=== PATIENT | female | born 1975 | race Caucasian/White ===

== ENCOUNTER 2016-11-16 12:29 | Emergency (ER) | payer OTHER ==
[~2016-11-16 12:29] MED LIST: CLEOCIN HCL300 MG PO; HYDROCHLOROTH12.5 M2 PO; KLONOPIN1 M1 PO; LEXAPRO20 M2 PO; OXYCODONE/APAP PO; PERCOCET 5-3251 EACH PO; PERCOCET 5/3251 TAB PO; TESSALON PERLE100 M1 PO; VITAMIN D250000 UNI1 PO; WELLBUTRIN SR150 M1 PO; ZOLOFT100 M1 PO; [UNRECOGNIZED DRUG - REMARK]
[2016-11-16] MEDS ORDERED: BRINTELLIX20 M1 PO (13:08)
[2016-11-16 13:53] LABS: BASO % 0.5 % (0-2); EOSINOPHIL ABSOLUTE COUNT 0.2 tho/cmm (0.0-0.7); HCT-HEMATOCRIT 40.1 % (34.0-49.0); HGB-HEMOGLOBIN 14.2 gm/dl (12.0-15.5); IMMATURE GRANULOCYTES ABSOLUTE 0.04 tho/cmm (0-0.03); IMMATURE GRANULOCYTES PERCENT 0.5 % (0-0.3); LYMPH % 33.7 % (20-45); LYMPH ABSOLUTE COUNT 2.7 tho/cmm (0.8-4.5); MCH (MEAN CORPUSCULAR HGB) 29.8 pg (28.0-32.0); MCHC MEAN CORPUSCULAR HGB CONC 35.4 % (32.0-36.0); MCV (MEAN CELL VOLUME) 84.2 fl (82.0-96.0); MEAN PLATELET VOLUME 10.1 cmc (9.4-12.4); MONO % 6.4 % (0-12); MONOCYTE ABSOLUTE COUNT 0.5 tho/cmm (0.0-1.2); NEUTROPHIL ABSOLUTE COUNT 4.4 tho/cmm (1.6-8.0); NEUTROPHIL-AUTOMATED 4.4 tho/cmm (1.6-8.0); NEUTROPHILS % 55.9 % (40-80); PLATELET COUNT 221 tho/cmm (150-450); RED BLOOD COUNT 4.76 mil/cmm (4.00-5.20); RED CELL DISTRIBUTION WIDTH 13.4 % (12.4-16.4); WHITE BLOOD COUNT 7.9 tho/cmm (4.0-10.0)
[2016-11-16] MEDS ORDERED: VYVANSE40 M1 PO (13:59)
[2016-11-16] MEDS ORDERED: MIRAPEX0.125 M1 PO (14:00)
[2016-11-16 14:15] LABS: PREGNANCY-SERUM NEGATIVE (NEGATIVE)
[2016-11-16 14:16] LABS: ALB/GLOB RATIO 0.9 (0.8-2.0); ALBUMIN 3.6 g/dl (3.5-5.0); ALKALINE PHOSPHATASE 93 U/L (33-138); ALT/SGPT 30 U/L (12-78); BILIRUBIN,TOTAL 0.3 mg/dl (0-1.5); BLOOD UREA NITROGEN 10 mg/dl (6-24); C-REACTIVE PROTEIN 1.1 mg/dl (0-0.9); CALCIUM 8.3 mg/dl (8.5-10.5); CARBON DIOXIDE-VENOUS 28 mmol/L (22-32); CHLORIDE 106 mmol/l (96-110); CREATININE 0.83 mg/dl (0.50-1.10); GLUCOSE 85 mg/dL (70-110); LIPASE 259 U/L (73-393); SODIUM 141 mmol/L (135-145); eGFR VALUE FOR BLACK >90 mL/Min
[2016-11-16 14:20] LABS: URINE BILIRUBIN NEGATIVE (NEG); URINE BLOOD SMALL (NEG); URINE GLUCOSE (UA) NEGATIVE (NEG); URINE KETONE NEGATIVE (NEG); URINE LEUKOCYTE ESTERASE POSITIVE (NEG); URINE NITRITE NEGATIVE (NEG); URINE PROTEIN MODERATE (NEG); URINE SPECIFIC GRAVITY 1.025 (1.003-1.030)
[2016-11-16 14:23] LABS: ANION GAP 11 mmol/L (0-20); AST/SGOT 28 U/L (10-40)
[2016-11-16 14:24] LABS: POTASSIUM 3.6 mmol/L (3.7-5.1)
[2016-11-16 14:29] LABS: URINE APPEARANCE CLEAR; URINE COLOR DARK YELLOW
[2016-11-16 14:31] LABS: URINE BACTERIA 1+; URINE MUCUS 1+
[2016-11-16] MEDS ORDERED: ZOFRAN4 M2 PO (15:37)
[2016-11-16] MEDS ORDERED: BACTRIM DS TAB1 EAC2 PO (15:37)
== END 2016-11-16 15:43 ==
LOC: EDMED 12:29
PROVIDERS: Emergency Medicine
DX: N39.0 Urinary tract infection, site not specified (principal); I10 Essential (primary) hypertension; J45.909 Unspecified asthma, uncomplicated; K21.9 Gastro-esophageal reflux disease without esophagitis; Z90.49 Acquired absence of other specified parts of digestive tract; Z79.899 Other long term (current) drug therapy; Z90.89 Acquired absence of other organs; Z98.890 Other specified postprocedural states; Z87.891 Personal history of nicotine dependence
CPT/HCPCS: J2405; J7030; Q9967

== ENCOUNTER 2016-11-29 20:50 | Emergency (ER) | payer OTHER ==
[~2016-11-29 20:50] MED LIST changes: +BACTRIM DS TAB1 EAC2 PO; +BRINTELLIX20 M1 PO; +MIRAPEX0.125 M1 PO; +VYVANSE40 M1 PO; +ZOFRAN4 M2 PO
[2016-11-29 21:41] LABS: BASO % 0.3 % (0-2); EOS % 1.2 % (0-7); EOSINOPHIL ABSOLUTE COUNT 0.1 tho/cmm (0.0-0.7); HCT-HEMATOCRIT 38.5 % (34.0-49.0); HGB-HEMOGLOBIN 13.6 gm/dl (12.0-15.5); IMMATURE GRANULOCYTES ABSOLUTE 0.04 tho/cmm (0-0.03); IMMATURE GRANULOCYTES PERCENT 0.4 % (0-0.3); LYMPH ABSOLUTE COUNT 3.2 tho/cmm (0.8-4.5); MCH (MEAN CORPUSCULAR HGB) 29.7 pg (28.0-32.0); MCHC MEAN CORPUSCULAR HGB CONC 35.3 % (32.0-36.0); MCV (MEAN CELL VOLUME) 84.1 fl (82.0-96.0); MEAN PLATELET VOLUME 10.4 cmc (9.4-12.4); MONO % 5.9 % (0-12); MONOCYTE ABSOLUTE COUNT 0.6 tho/cmm (0.0-1.2); NEUTROPHILS % 60.2 % (40-80); PLATELET COUNT 199 tho/cmm (150-450); RED BLOOD COUNT 4.58 mil/cmm (4.00-5.20); RED CELL DISTRIBUTION WIDTH 13.2 % (12.4-16.4); WHITE BLOOD COUNT 9.9 tho/cmm (4.0-10.0)
[2016-11-29 21:43] LABS: URINE BILIRUBIN NEGATIVE (NEG); URINE BLOOD NEGATIVE (NEG); URINE GLUCOSE (UA) NEGATIVE (NEG); URINE KETONE NEGATIVE (NEG); URINE LEUKOCYTE ESTERASE NEGATIVE (NEG); URINE NITRITE NEGATIVE (NEG); URINE PH 6.5 (5.0-8.0); URINE PROTEIN NEGATIVE (NEG)
[2016-11-29 21:45] LABS: URINE APPEARANCE CLEAR; URINE COLOR PALE YELLOW
[2016-11-29 21:55] LABS: ALBUMIN 3.7 g/dl (3.5-5.0); ALKALINE PHOSPHATASE 93 U/L (33-138); ALT/SGPT 29 U/L (12-78); ANION GAP 13 mmol/L (0-20); AST/SGOT 13 U/L (10-40); BILIRUBIN,TOTAL 0.4 mg/dl (0-1.5); BLOOD UREA NITROGEN 13 mg/dl (6-24); CALCIUM 8.5 mg/dl (8.5-10.5); CARBON DIOXIDE-VENOUS 29 mmol/L (22-32); CHLORIDE 105 mmol/l (96-110); CREATININE 1.03 mg/dl (0.50-1.10); GLUCOSE 78 mg/dL (70-110); POTASSIUM 3.7 mmol/L (3.7-5.1); SODIUM 143 mmol/L (135-145); eGFR VALUE FOR BLACK 79 mL/Min
== END 2016-11-29 23:20 ==
LOC: EDMED 20:50
PROVIDERS: Physician Assistant
DX: R10.9 Unspecified abdominal pain (principal); R11.0 Nausea; Z90.89 Acquired absence of other organs; Z90.49 Acquired absence of other specified parts of digestive tract; Z87.891 Personal history of nicotine dependence; Z98.890 Other specified postprocedural states
CPT/HCPCS: J1885